=== PATIENT | female | born 1955 | race African-American/Black ===

== ENCOUNTER 2022-11-17 13:51 | Outpatient (OUT) | payer OTHER, SELFPAY | END 2022-11-17 13:52 | disposition home or self-care (01) | LOC: PST 13:51 | PROVIDERS: Visit Provider Surgery | DX: Z01.818 Encounter for other preprocedural examination (principal); K62.5 Hemorrhage of anus and rectum; K62.89 Other specified diseases of anus and rectum; Z80.0 Family history of malignant neoplasm of digestive organs ==

== ENCOUNTER 2022-11-30 06:49 | Day surgery (SDC) | payer MEDICARE, SELFPAY ==
--- NOTE | 2022-11-30 07:16 | P.GSPRC_ITS ---
Date of procedure: 11/30/22 Indications for Procedure: rectal bleeding/rectal pain Pre-op diagnosis: rectal bleeding/rectal pain Procedure: colonoscopywith hot snare polyp sigmoid colon less than 5 mm Findings: diverticulosis extensive sigmoid and descending colon large Colon polyp sigmoid colon 5 mm Anesthesia: MAC Surgeon: Russ Abarca Procedure Summary: PROCEDURE: The patient was taken to the Endoscopy Suite, placed in the left lateral recumbent position, given IV sedation as above. A rectal digital exam w as performed. The sphincter tone was found to be normal. No rectal masses were appreciated.No hemorrhoids were noted. The Olympus video colonoscope was advanced under direct visualization to the rectum, sigmoid colon, descending colon, transverse colon and ascending colon to the ileocecal valve. appendiceal lumen was visualized.The underside of the valve was seen. The scope was slowly withdrawn with air being desufflated as it was withdrawn. No gross tumors were seen. there was a small polyp in the sigmoid colon about 25 cm from the anal verge which was hot snared and retrieved. Prep was okay.The patient tolerated the procedure well and went to the Recovery Area in satisfactory condition. I recommend the patient use a bulk laxative on a regular basis and repeat colonoscopy for surveillance in five years if this is a tubular adenoma but of hyperplastic in ten years. Estimated blood loss (mL): 0 Complications: No Condition: stable Disposition: PACU
[2022-11-30 07:20] VITALS: BP 125/78; PULSE 57; RESP 18; TEMP 36.2; O2SAT 96; BMI 25.1
[2022-11-30] MEDS: LACTATED RINGER'S SOLUTION 1,000 ML 50 ML IV (09:12)
[2022-11-30 10:13] VITALS: BP 170/100; PULSE 75; RESP 17; TEMP 36.5; O2SAT 96
[2022-11-30 10:28] VITALS: BP 175/102; PULSE 68; RESP 16; O2SAT 98
--- NOTE | 2022-11-30 10:39 | PC.NURSE ---
NOTIFIED DR. BHANDARI OF PATIENTS 10 OUT OF 10 RECTAL PAIN, INFORMED HIM THAT PATIENT WAS TEARFUL AND GROANING. DR. BHANDARI GAVE NO NEW ORDERS AT THIS TIME. DR. BHANDARI AND DR. VARGAS BOTH AWARE OF PATIENT RECTAL PAIN. PATIENT DENIES ANY STOMACH PAIN AT THIS TIME.
[2022-11-30 10:42] VITALS: BP 168/98; PULSE 78; RESP 16; O2SAT 98
== END 2022-11-30 11:06 | disposition home or self-care (01) ==
PROVIDERS: Visit Provider Surgery
PROC: (CPT 45385; principal; 2022-11-30 08:00)
DX: K62.5 Hemorrhage of anus and rectum (principal); K62.89 Other specified diseases of anus and rectum; K63.5 Polyp of colon; K57.30 Diverticulosis of large intestine without perforation or abscess without bleeding; Z80.0 Family history of malignant neoplasm of digestive organs; R19.7 Diarrhea, unspecified; K59.00 Constipation, unspecified; F41.9 Anxiety disorder, unspecified; Z90.49 Acquired absence of other specified parts of digestive tract; F17.210 Nicotine dependence, cigarettes, uncomplicated
CPT/HCPCS: 45385; J2704